=== PATIENT | male | born 1990 | race American Indian/Alaskan Native ===

== ENCOUNTER 2016-07-16 09:45 | Inpatient (IN) | payer OTHER ==
[2016-07-16 10:21] VITALS: BMI 15.7
--- NOTE | 2016-07-16 11:54 | HP ---
CIWA Score - CIWA Score Nausea/Vomitin-No Nausea/No Vomiting Muscle Tremors: 4-Moderate,w/Arms Extend Anxiety: 4-Mod. Anxious/Guarded Agitation: 4-Moderately Restless Paroxysmal Sweats: 2 Orientation: 0-Oriented Tacttile Disturbances: 3-Moderate Itch/Numb/Burn Auditory Disturbances: 0-None Visual Disturbances: 0-None Headache: 2-Mild CIWA-Ar Total Score: 19 Admission ROS BHS - HPI Chief Complaint: DETOX TX FOR ALCOHOL DEPENDENCE Allergies/Adverse Reactions: Allergies Allergy/AdvReac Type Severity Reaction Status Date / Time lactose AdvReac diarrhea Verified 07/16/16 10:15 NKDA Allergy Uncoded 07/16/16 10:15 History of Present Illness: 26 Y/O MALE WITH A HX OF ALCOHOL, CRACK, MARIJUANA AND PCP DEPENDENCE SEEKING DETOX TX. Exam Limitations: No Limitations - Ebola screening Have you traveled outside of the country in the last 21 days: No Have you had contact with anyone from an Ebola affected area: No Have you been sick,other than usual withdrawal symptoms: No - Review of Systems Constitutional: Chills, Loss of Appetite, Night Sweats, Changes in sleep EENT: reports: Blurred Vision (WHEN SMOKING DRUGS), Dental Problems (CHIPPED TOOTH) Respiratory: reports: No Symptoms reported Cardiac: reports: Chest Pain (WHEN SMOKING DRUGS), Lightheadedness GI: reports: Constipated, Poor Appetite, Poor Fluid Intake, Indigestion (HX GASTRITIS), Abdominal cramping : reports: No Symptoms Reported Musculoskeletal: reports: Back Pain (RIGHT SIDE OF FLANK.) Integumentary: reports: Rash (ITCHY FEET) Neuro: reports: Headache, Tremors, Unsteady Gait, Dizziness Endocrine: reports: No Symptoms Reported Hematology: reports: No Symptoms Reported Psychiatric: reports: Orientated x3, Agitated, Anxious Other Systems: Reviewed and Negative Patient History - Patient Medical History Hx Anemia: No Hx Asthma: No Hx Chronic Obstructive Pulmonary Disease (COPD): No Hx Cancer: No Hx Cardiac Disorders: No Hx Congestive Heart Failure: No Hx Hypertension: No Hx Hypercholesterolemia: No Hx Pacemaker: No HX Cerebrovascular Accident: No Hx Seizures: No Hx Dementia: No Hx Diabetes: No Hx Gastrointestinal Disorders: Yes (gastritis) Hx Liver Disease: No Hx Genitourinary Disorders: No Hx Sexually Transmitted Disorders: No Hx Renal Disease (ESRD): No Hx Thyroid Disease: No Hx Human Immunodeficiency Virus (HIV): No (NEGATIVE HX) Hx Hepatitis C: No (NEGATIVE HX) Hx Depression: No Hx Suicide Attempt: No (DENIES) Hx Bipolar Disorder: No Hx Schizophrenia: No Other Medical History: HX INSOMNIA - Patient Surgical History Past Surgical History: No Hx Neurologic Surgery: No Hx Cataract Extraction: No Hx Cardiac Surgery: No Hx Lung Surgery: No Hx Breast Surgery: No Hx Breast Biopsy: No Hx Abdominal Surgery: No Hx Appendectomy: No Hx Cholecystectomy: No Hx Genitourinary Surgery: No Hx Orthopedic Surgery: No Anesthesia Reaction: No - PPD History Previous Implant?: Yes Documented Results: Negative w/o proof Implanted On Prior R Admission?: Yes Date: 05/16/16 PPD to be Administered?: No - Reproductive History Patient is a Female of Child Bearing Age (11 -55 yrs old): No (MALE) - Smoking Cessation Smoking history: Current every day smoker Have you smoked in the past 12 months: Yes Aproximately how many cigarettes per day: 10 Hx Chewing Tobacco Use: No Initiated information on smoking cessation: Yes 'Breaking Loose' booklet given: 07/16/16 - Substance & Tx. History Hx Alcohol Use: Yes Hx Substance Use: Yes Substance Use Type: Alcohol, Cocaine, Marijuana (AND PCP) Hx Substance Use Treatment: Yes ([facility]-DETOX) - Substances Abused Crack Route: Oral Frequency: Daily Amount used: $50 Age of first use: 23 Date of Last Use: 07/16/16 PCP Route: Smoking Frequency: 1-2 times per week Amount used: $10 Age of first use: 20 Date of Last Use: 07/14/16 Alcohol-morgan/four dayana Route: Oral Frequency: Daily Amount used: 1 pt./2 (24 oz.) Age of first use: 12 Date of Last Use: 07/16/16 Marijuana Route: Smoking Frequency: Daily Amount used: $20 Age of first use: 13 Date of Last Use: 07/16/16 Family Disease History - Family Disease History Family Disease History: Diabetes: Mother Admission Physical Exam BHS - Vital Signs Vital Signs: Vital Signs - 24 hr 07/16/16 10:18 Temperature 97.6 F Pulse Rate 83 Respiratory 16 Rate Blood Pressure 115/66 - Physical General Appearance: Yes: Moderate Distress, Irritable, Anxious HEENTM: Yes: EOMI, Normocephalic, RONN, Pharynx Normal Respiratory: Yes: Chest Non-Tender, Lungs Clear, Normal Breath Sounds, No Respiratory Distress Neck: Yes: Supple, Trachea in good position Breast: Yes: Breast Exam Deferred Cardiology: Yes: Regular Rhythm, Regular Rate, S1, S2 Abdominal: Yes: Normal Bowel Sounds, Non Tender, Flat, Soft Genitourinary: Yes: Other (N/C) Back: Yes: Within Normal Limits Musculoskeletal: Yes: full range of Motion, Gait Steady Extremities: Yes: Normal Range of Motion, Non-Tender 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 intact, Fully Oriented, Alert, Motor Strength 5/5 Integumentary: Yes: Dry, Warm Lymphatic: Yes: Within Normal Limits - Diagnostic (1) Alcohol dependence with uncomplicated withdrawal Status: Acute (2) Cocaine dependence Status: Chronic Qualifiers: Substance use status: uncomplicated Qualified Code(s): F14.20 - Cocaine dependence, uncomplicated (3) Nicotine dependence Status: Chronic Qualifiers: Nicotine product type: cigarettes Substance use status: uncomplicated Qualified Code(s): F17.210 - Nicotine dependence, cigarettes, uncomplicated (4) Cannabis dependence Status: Acute (5) PCP (phencyclidine) abuse Status: Acute Cleared for Admission [facility] - Detox or Rehab [facility] Level of Care: Medically Managed Detox Regimen/Protocol: Librium [facility] Breath Alcohol Content Breath Alcohol Content: 0.023 Urine Drug Screen - Results Drug Screen Negative: No Urine Drug Screen Results: THC-Marijuana, RANDY-Cocaine, PCP-Phencyclidine
[2016-07-16] MEDS ORDERED: MENTHOL/PHENOL 1 EACH UD MM PRN (12:15)
[2016-07-16] MEDS ORDERED: guaiFENesin/D-METHORPHAN HB 10 ML UNIT-DOSE CUPS PO PRN (12:15)
[2016-07-16] MEDS ORDERED: diphenhydrAMINE HCL 50 MG CAPSULE PO PRN (12:15)
[2016-07-16] MEDS ORDERED: ACETAMINOPHEN 325 MG TABLET (FP) PO PRN (12:15)
[2016-07-16] MEDS ORDERED: MAGNESIUM CITRATE 300 ML BOTTLE PO PRN (12:15)
[2016-07-16] MEDS ORDERED: hydrOXYzine PAMOATE 25 MG CAPSULE (FP) PO PRN (12:15)
[2016-07-16] MEDS ORDERED: chlordiazePOXIDE HCL 25 MG CAPSULE PO PRN (12:15)
[2016-07-16] MEDS ORDERED: NICOTINE POLACRILEX 2 MG GUM BUC PRN (12:15)
[2016-07-16] MEDS ORDERED: IBUPROFEN 400 MG TABLET (FP) PO PRN (12:15)
[2016-07-16] MEDS ORDERED: P-EPHED 60MG/TRIPROLIDI 2.5MG TABLET PO PRN (12:15)
[2016-07-16] MEDS ORDERED: MAG HYDROX/AL HYDROX/SIMETH 30 ML UNIT-DOSE CUP PO PRN (12:15)
[2016-07-16] MEDS ORDERED: LOPERAMIDE HCL 2 MG CAPSULE PO PRN (12:15)
[2016-07-16] MEDS ORDERED: MAGNESIUM HYDROX 2400MG/30ML ORAL SUSPENSION 30 ML CUP PO PRN (12:15)
[2016-07-16] MEDS ORDERED: chlordiazePOXIDE HCL 25 MG CAPSULE PO ONE (12:20)
[2016-07-16] MEDS: NICOTINE 14 MG/24 HOURS TOPICAL PATCH TD SCH (13:33)
[2016-07-16 19:19] LABS: URINE APPEARANCE CLEAR; URINE BILIRUBIN NEGATIVE (NEGATIVE); URINE BLOOD NEGATIVE (NEGATIVE); URINE COLOR DKYELLOW; URINE GLUCOSE (UA) NEGATIVE (NEGATIVE); URINE KETONE NEGATIVE (NEGATIVE); URINE NITRITE NEGATIVE (NEGATIVE); URINE PROTEIN NEGATIVE (NEGATIVE); URINE UROBILINOGEN 4.0 E.U/dl E.U./dl (0.2-1.0)
[2016-07-16 19:29] LABS: URINE LEUK ESTERASE 1+ (NEGATIVE)
[2016-07-16 19:38] LABS: URINE BACTERIA RARE /hpf (NONE SEEN); URINE MUCUS RARE; URINE RBC 1 /hpf (0-3); URINE WBC 5 /hpf (3-5)
[2016-07-16] MEDS: chlordiazePOXIDE HCL 25 MG CAPSULE PO SCH ×2 (21:44→22:39)
[2016-07-16] MEDS: THIAMINE HCL 100 MG TABLET (FP) PO SCH (22:39)
--- NOTE | 2016-07-16 23:06 | EKG ---
Test Reason : Blood Pressure : / mmHG Vent. Rate : 084 BPM Atrial Rate : 084 BPM P-R Int : 134 ms QRS Dur : 098 ms QT Int : 368 ms P-R-T Axes : 000 140 144 degrees QTc Int : 434 ms SUSPECT ARM LEAD REVERSAL, INTERPRETATION ASSUMES NO REVERSAL NORMAL SINUS RHYTHM RIGHT AXIS DEVIATION NONSPECIFIC ST AND T WAVE ABNORMALITY ABNORMAL ECG NO PREVIOUS ECGS AVAILABLE Confirmed by SONALI PARKER, NICHOLE ([id number]) on 07/16/2016 11:05:47 PM Referred By: Vj Shoemaker Confirmed By:NICHOLE LYON MD
[2016-07-17] MEDS: chlordiazePOXIDE HCL 25 MG CAPSULE PO SCH ×4 (06:00→22:23)
--- NOTE | 2016-07-17 08:26 | CONSULT ---
[facility] Psychiatric Consult - Data Date of interview: 07/17/16 Admission source: [facility] Identifying data: This is 26 years old male with no psychiatric hospitalization history intoxicated with: Cannabis, Alcohol, PCP, , Crack and Nicotine Substance Abuse History: - Smoking Cessation. Smoking history: Current every day smoker. Have you smoked in the past 12 months: Yes. Aproximately how many cigarettes per day: 10. Hx Chewing Tobacco Use: No. Initiated information on smoking cessation: Yes. 'Breaking Loose' booklet given: 07/16/16. - Substance & Tx. History. Hx Alcohol Use: Yes. Hx Substance Use: Yes. Substance Use Type : Alcohol, Cocaine, Marijuana (AND PCP). Hx Substance Use Treatment: Yes ([facility] -DETOX). - Substances Abused. Crack. Route: Oral. Frequency: Daily. Amount used: $50. Age of first use: 23. Date of Last Use: 07/16/16. PCP. Route: Smoking. Frequency: 1-2 times per week. Amount used: $10. Age of first use: 20. Date of Last Use: 07/14/16. Alcohol-morgan/four dayana. Route : Oral. Frequency: Daily. Amount used: 1 pt./2 (24 oz.). Age of first use: 12. Date of Last Use: 07/16/16. Marijuana. Route: Smoking. Frequency: Daily. Amount used: $20. Age of first use: 13. Date of Last Use: 07/16/16 Medical History: Right foot injury history Psychiatric History: Patient reports history of anxiety, presoccupied with intomnia, reports taking prior to admission: Ambien 10mg po qhs Physical/Sexual Abuse/Trauma History: Denies Additional Comment: Ambien 10mg po qhs Mental Status Exam - Mental Status Exam Alert and Oriented to: Person Cognitive Function: Fair Patient Appearance: Unkempt Mood: Sad Affect: Mood Congruent Patient Behavior: Cooperative Speech Pattern: Appropriate Voice Loudness: Mildly Soft/Quiet Thought Process: Goal Oriented Thought Disorder: Being Controlled Hallucinations: Denies Suicidal Ideation: Denies Homicidal Ideation: Denies Insight/Judgement: Fair Sleep: Difficulty falling asleep Appetite: Weight loss Muscle strength/Tone: Normal Gait/Station: Normal Additional Comments: Ambien 10mg po qhs Psychiatric Findings - Problem List ([place] 1, 2,3) (1) Alcohol dependence with uncomplicated withdrawal Current Visit: Yes Status: Acute (2) Cocaine dependence Current Visit: Yes Status: Chronic Qualifiers: Substance use status: uncomplicated Qualified Code(s): F14.20 - Cocaine dependence, uncomplicated (3) Nicotine dependence Current Visit: Yes Status: Chronic Qualifiers: Nicotine product type: cigarettes Substance use status: uncomplicated Qualified Code(s): F17.210 - Nicotine dependence, cigarettes, uncomplicated (4) Alcohol-induced sleep disorder Current Visit: No Status: Acute (5) PCP (phencyclidine) abuse Current Visit: Yes Status: Acute (6) Cannabis dependence Current Visit: Yes Status: Acute (7) Drug-induced mood disorder Current Visit: Yes Status: Acute - Initial Treatment Plan Initial Treatment Plan: Ambien 10mg po qhs
[2016-07-17 09:32] LABS: MCH 31.6 pg (25.7-33.7); MCHC 33.1 g/dl (32.0-35.9); MEAN CELL VOLUME 95.3 fl (80-96); MEAN PLT VOLUME 9.6 fl (7.5-11.1); PLATELET COUNT 233 K/MM3 (134-434); WHITE BLOOD COUNT 8.9 K/mm3 (4.0-10.0)
[2016-07-17 09:35] LABS: HIV 1 & 2 AB NEGATIVE; HIV 1 AGp24 NEGATIVE
[2016-07-17 09:48] LABS: ALBUMIN 4.1 g/dl (3.4-5.0); ANION GAP 7 (8-16); CALCIUM 9.2 mg/dL (8.5-10.1); CO2 31 mmol/L (21-32); GLUCOSE,RANDOM 113 mg/dL (74-106); SGOT/AST 11 U/L (15-37); SGPT/ALT 17 U/L (12-78)
[2016-07-17 09:50] LABS: ALK PHOS 82 U/L (45-117); BILIRUBIN,TOTAL 0.2 mg/dL (0.2-1.0); CREATININE 0.9 mg/dL (0.7-1.3); TOT PROT 7.1 g/dl (6.4-8.2)
[2016-07-17] MEDS: PRENATAL VITAMINS W/ FOLIC ACID TABLET (FP) PO SCH (11:04)
[2016-07-17] MEDS: NICOTINE 14 MG/24 HOURS TOPICAL PATCH TD SCH (11:04)
[2016-07-17] MEDS ORDERED: INFLUENZA VACCINE 45 MCG/0.5 ML (MDV 16-17) IM ONE (12:00)
--- NOTE | 2016-07-17 13:27 | PN ---
[facility] CIWA - CIWA Score Nausea/Vomitin-No Nausea/No Vomiting Muscle Tremors: 4-Moderate,w/Arms Extend Anxiety: 3 Agitation: 4-Moderately Restless Paroxysmal Sweats: 3 Orientation: 0-Oriented Tacttile Disturbances: 0-None Auditory Disturbances: 0-None Visual Disturbances: 0-None Headache: 0-None Present CIWA-Ar Total Score: 14 BHS Progress Note (SOAP) Subjective: irritable agitation anxiety sweats Objective: 07/17/16 13:26 Vital Signs Temperature 96.8 F L 07/17/16 10:13 Pulse Rate 60 07/17/16 10:13 Respiratory Rate 16 07/17/16 10:13 Blood Pressure 112/56 07/17/16 10:13 O2 Sat by Pulse Oximetry (%) Laboratory Tests 07/16/16 07/16/16 07/17/16 11:40 13:00 05:30 WBC 8.9 RBC 4.31 Hgb 13.6 Hct 41.0 MCV 95.3 MCHC 33.1 RDW 14.0 Plt Count 233 MPV 9.6 Sodium Potassium Chloride Carbon Dioxide Anion Gap BUN Creatinine Creat Clearance w eGFR Random Glucose Calcium Total Bilirubin AST ALT Alkaline Phosphatase Total Protein Albumin Urine Color Dkyellow Urine Appearance Clear Urine pH 5.0 Ur Specific [place] 1.026 Urine Protein Negative Urine Glucose (UA) Negative Urine Ketones Negative Urine Blood Negative Urine Nitrite Negative Urine Bilirubin Negative Urine Urobilinogen 4.0 e.u/dl Ur Leukocyte Esterase 1+ H Urine RBC 1 Urine WBC 5 Ur Epithelial Cells Rare Urine Bacteria Rare Urine Mucus Rare HIV 1&2 Antibody Screen Negative HIV P24 Antigen Negative 07/17/16 05:30 WBC RBC Hgb Hct MCV MCHC RDW Plt Count MPV Sodium 142 Potassium 4.1 Chloride 104 Carbon Dioxide 31 Anion Gap 7 L BUN 13 D Creatinine 0.9 Creat Clearance w eGFR > 60 Random Glucose 113 H D Calcium 9.2 Total Bilirubin 0.2 D AST 11 L D ALT 17 Alkaline Phosphatase 82 Total Protein 7.1 Albumin 4.1 Urine Color Urine Appearance Urine pH Ur Specific [place] Urine Protein Urine Glucose (UA) Urine Ketones Urine Blood Urine Nitrite Urine Bilirubin Urine Urobilinogen Ur Leukocyte Esterase Urine RBC Urine WBC Ur Epithelial Cells Urine Bacteria Urine Mucus HIV 1&2 Antibody Screen HIV P24 Antigen awake/alert ambulating no acute distress Assessment: 02/09/17 13:27 withdrawal sx Plan: continue detox increase fluids
[2016-07-17 15:33] LABS: URINE APPEARANCE CLEAR; URINE BILIRUBIN NEGATIVE (NEGATIVE); URINE BLOOD NEGATIVE (NEGATIVE); URINE COLOR LTYELLOW; URINE GLUCOSE (UA) NEGATIVE (NEGATIVE); URINE KETONE NEGATIVE (NEGATIVE); URINE NITRITE NEGATIVE (NEGATIVE); URINE PROTEIN NEGATIVE (NEGATIVE); URINE UROBILINOGEN NEGATIVE E.U./dl (0.2-1.0)
[2016-07-17 15:35] LABS: URINE LEUK ESTERASE TRACE (NEGATIVE)
[2016-07-17 15:38] LABS: URINE MUCUS RARE; URINE RBC 1 /hpf (0-3); URINE WBC 20 /hpf (3-5)
--- NOTE | 2016-07-17 18:01 | PN ---
S Progress Note Note: received nurse call patient has itchy feet fungal toes clotrimazole cream continue detox
--- NOTE | 2016-07-17 19:33 | PN ---
[facility] Progress Note Note: received nurse call patient has heart burn zantac 150 mg bid continue detox
[2016-07-17] MEDS: CLOTRIMAZOLE 1% CREAM 15 GM TUBE TP SCH (22:23)
[2016-07-17] MEDS: THIAMINE HCL 100 MG TABLET (FP) PO SCH (22:23)
[2016-07-17] MEDS: RANITIDINE HCL 150 MG TABLET (FP) PO SCH (22:23)
[2016-07-17] MEDS: ZOLPIDEM TARTRATE 10 MG TABLET (PARK CARE ONLY) PO PRN (22:23)
[2016-07-18] MEDS: chlordiazePOXIDE HCL 25 MG CAPSULE PO SCH ×2 (05:41→10:47)
[2016-07-18] MEDS ORDERED: COLLOIDAL OATMEAL 1 BAR EACH TP PRN (10:43)
--- NOTE | 2016-07-18 10:45 | PN ---
[facility] CIWA - CIWA Score Nausea/Vomitin-No Nausea/No Vomiting Muscle Tremors: 3 Anxiety: 3 Agitation: 3 Paroxysmal Sweats: 3 Orientation: 0-Oriented Tacttile Disturbances: 0-None Auditory Disturbances: 0-None Visual Disturbances: 0-None Headache: 0-None Present CIWA-Ar Total Score: 12 S Progress Note (SOAP) Subjective: chills sweats interrupted sleep itchy scalp Objective: 07/18/16 10:45 Vital Signs Temperature 97.9 F 07/18/16 10:33 Pulse Rate 70 07/18/16 10:33 Respiratory Rate 18 07/18/16 10:33 Blood Pressure 117/75 07/18/16 10:33 O2 Sat by Pulse Oximetry (%) Laboratory Tests 07/16/16 07/16/16 07/17/16 11:40 13:00 05:30 WBC 8.9 RBC 4.31 Hgb 13.6 Hct 41.0 MCV 95.3 MCHC 33.1 RDW 14.0 Plt Count 233 MPV 9.6 Sodium Potassium Chloride Carbon Dioxide Anion Gap BUN Creatinine Creat Clearance w eGFR Random Glucose Calcium Total Bilirubin AST ALT Alkaline Phosphatase Total Protein Albumin Urine Color Dkyellow Urine Appearance Clear Urine pH 5.0 Ur Specific [place] 1.026 Urine Protein Negative Urine Glucose (UA) Negative Urine Ketones Negative Urine Blood Negative Urine Nitrite Negative Urine Bilirubin Negative Urine Urobilinogen 4.0 e.u/dl Ur Leukocyte Esterase 1+ H Urine RBC 1 Urine WBC 5 Ur Epithelial Cells Rare Urine Bacteria Rare Urine Mucus Rare RPR Titer HIV 1&2 Antibody Screen Negative HIV P24 Antigen Negative 07/17/16 07/17/16 07/17/16 05:30 05:30 10:05 WBC RBC Hgb Hct MCV MCHC RDW Plt Count MPV Sodium 142 Potassium 4.1 Chloride 104 Carbon Dioxide 31 Anion Gap 7 L BUN 13 D Creatinine 0.9 Creat Clearance w eGFR > 60 Random Glucose 113 H D Calcium 9.2 Total Bilirubin 0.2 D AST 11 L D ALT 17 Alkaline Phosphatase 82 Total Protein 7.1 Albumin 4.1 Urine Color Ltyellow Urine Appearance Clear Urine pH 5.0 Ur Specific [place] 1.020 Urine Protein Negative Urine Glucose (UA) Negative Urine Ketones Negative Urine Blood Negative Urine Nitrite Negative Urine Bilirubin Negative Urine Urobilinogen Negative Ur Leukocyte Esterase Trace H Urine RBC 1 Urine WBC 20 Ur Epithelial Cells Rare Urine Bacteria Urine Mucus Rare RPR Titer Nonreactive HIV 1&2 Antibody Screen HIV P24 Antigen awake/alert ambulating no acute distress Assessment: 07/18/16 10:46 withdrawal sx Plan: continue detox increase fluids selenum shampoo aveeno soap
[2016-07-18] MEDS: CLOTRIMAZOLE 1% CREAM 15 GM TUBE TP SCH ×2 (10:47→22:36)
[2016-07-18] MEDS: PRENATAL VITAMINS W/ FOLIC ACID TABLET (FP) PO SCH (10:47)
[2016-07-18] MEDS: RANITIDINE HCL 150 MG TABLET (FP) PO SCH ×2 (10:47→22:34)
[2016-07-18] MEDS: SELENIUM SULFIDE 2.5% LOTION 4 OZ. TP SCH (11:57)
[2016-07-18] MEDS: NICOTINE 14 MG/24 HOURS TOPICAL PATCH TD SCH (14:55)
[2016-07-18] MEDS: CLINDAMYCIN PHOSPHATE 1% TOPICAL GEL 30 GM TUBE TP SCH ×2 (14:56→22:34)
[2016-07-18] MEDS: chlordiazePOXIDE 5 MG CAPSULE PO SCH ×2 (17:17→22:34)
[2016-07-18] MEDS: THIAMINE HCL 100 MG TABLET (FP) PO SCH (22:34)
[2016-07-18] MEDS: ZOLPIDEM TARTRATE 10 MG TABLET (PARK CARE ONLY) PO PRN (22:34)
[2016-07-19] MEDS: chlordiazePOXIDE 5 MG CAPSULE PO SCH ×2 (05:58→10:58)
[2016-07-19] MEDS: CLINDAMYCIN PHOSPHATE 1% TOPICAL GEL 30 GM TUBE TP SCH ×2 (10:58→22:23)
[2016-07-19] MEDS: RANITIDINE HCL 150 MG TABLET (FP) PO SCH ×2 (10:58→22:26)
[2016-07-19] MEDS: PRENATAL VITAMINS W/ FOLIC ACID TABLET (FP) PO SCH (10:58)
[2016-07-19] MEDS: CLOTRIMAZOLE 1% CREAM 15 GM TUBE TP SCH ×2 (10:59→22:24)
[2016-07-19] MEDS: SELENIUM SULFIDE 2.5% LOTION 4 OZ. TP SCH (10:59)
[2016-07-19] MEDS: NICOTINE 14 MG/24 HOURS TOPICAL PATCH TD SCH (11:01)
--- NOTE | 2016-07-19 11:45 | PN ---
S Progress Note (SOAP) Subjective: ALERT,IRRITABLE,ANXIOUS,INTERRUPTED SLEEP Objective: 07/19/16 11:44 Vital Signs Temperature 97.4 F L 07/19/16 09:42 Pulse Rate 59 L 07/19/16 09:42 Respiratory Rate 18 07/19/16 09:42 Blood Pressure 119/69 07/19/16 09:42 O2 Sat by Pulse Oximetry (%) Assessment: 07/19/16 11:44 WITHDRAWAL SYMPTOM Plan: CONTINUE DETOX,DISCHARGE IN AM
[2016-07-19] MEDS ORDERED: NICOTINE 21 MG/24 HOURS TOPICAL PATCH TD SCH (13:15)
[2016-07-19] MEDS: chlordiazePOXIDE HCL 10 MG CAPSULE PO SCH ×2 (17:48→22:26)
[2016-07-19] MEDS: THIAMINE HCL 100 MG TABLET (FP) PO SCH (22:26)
[2016-07-19] MEDS: ZOLPIDEM TARTRATE 10 MG TABLET (PARK CARE ONLY) PO PRN (22:27)
[2016-07-20] MEDS: chlordiazePOXIDE HCL 10 MG CAPSULE PO SCH (05:25)
[2016-07-20 07:03] VITALS: BP 110/60; PULSE 71; TEMP 97.3
--- NOTE | 2016-07-20 09:48 | DS ---
[facility] Detox Discharge Summary Admission Date: 07/16/16 Discharge Date: 07/20/16 - History Present History: Alcohol Dependence, Cannabis Dependence, Pcp Dependence Pertinent Past History: right foot injury - Physical Exam Results Vital Signs: Vital Signs Temperature 97.3 F L 07/20/16 06:00 Pulse Rate 71 07/20/16 06:00 Respiratory Rate 16 07/20/16 06:00 Blood Pressure 110/60 07/20/16 06:00 O2 Sat by Pulse Oximetry (%) Pertinent Admission Physical Exam Findings: Withdrawal sx. Laboratory Last Values WBC 8.9 K/mm3 (4.0-10.0) 07/17/16 05:30 RBC 4.31 M/mm3 (4.00-5.60) 07/17/16 05:30 Hgb 13.6 GM/dL (11.7-16.9) 07/17/16 05:30 Hct 41.0 % (35.4-49) 07/17/16 05:30 MCV 95.3 fl (80-96) 07/17/16 05:30 MCHC 33.1 g/dl (32.0-35.9) 07/17/16 05:30 RDW 14.0 % (11.9-15.9) 07/17/16 05:30 Plt Count 233 K/MM3 (134-434) 07/17/16 05:30 MPV 9.6 fl (7.5-11.1) 07/17/16 05:30 Sodium 142 mmol/L (136-145) 07/17/16 05:30 Potassium 4.1 mmol/L (3.5-5.1) 07/17/16 05:30 Chloride 104 mmol/L (98-107) 07/17/16 05:30 Carbon Dioxide 31 mmol/L (21-32) 07/17/16 05:30 Anion Gap 7 (8-16) L 07/17/16 05:30 BUN 13 mg/dL (7-18) D 07/17/16 05:30 Creatinine 0.9 mg/dL (0.7-1.3) 07/17/16 05:30 Creat Clearance w eGFR > 60 (>60) 07/17/16 05:30 Random Glucose 113 mg/dL (74-106) H D 07/17/16 05:30 Calcium 9.2 mg/dL (8.5-10.1) 07/17/16 05:30 Total Bilirubin 0.2 mg/dL (0.2-1.0) D 07/17/16 05:30 AST 11 U/L (15-37) L D 07/17/16 05:30 ALT 17 U/L (12-78) 07/17/16 05:30 Alkaline Phosphatase 82 U/L (45-117) 07/17/16 05:30 Total Protein 7.1 g/dl (6.4-8.2) 07/17/16 05:30 Albumin 4.1 g/dl (3.4-5.0) 07/17/16 05:30 Urine Color Ltyellow 07/17/16 10:05 Urine Appearance Clear 07/17/16 10:05 Urine pH 5.0 (5.0-8.0) 07/17/16 10:05 Ur Specific [place] 1.020 (1.001-1.035) 07/17/16 10:05 Urine Protein Negative (NEGATIVE) 07/17/16 10:05 Urine Glucose (UA) Negative (NEGATIVE) 07/17/16 10:05 Urine Ketones Negative (NEGATIVE) 07/17/16 10:05 Urine Blood Negative (NEGATIVE) 07/17/16 10:05 Urine Nitrite Negative (NEGATIVE) 07/17/16 10:05 Urine Bilirubin Negative (NEGATIVE) 07/17/16 10:05 Urine Urobilinogen Negative E.U./dl (0.2-1.0) 07/17/16 10:05 Ur Leukocyte Esterase Trace (NEGATIVE) H 07/17/16 10:05 Urine RBC 1 /hpf (0-3) 07/17/16 10:05 Urine WBC 20 /hpf (3-5) 07/17/16 10:05 Ur Epithelial Cells Rare /hpf (FEW) 07/17/16 10:05 Urine Bacteria Rare /hpf (NONE SEEN) 07/16/16 13:00 Urine Mucus Rare 07/17/16 10:05 RPR Titer Nonreactive (NONREACTIVE) 07/17/16 05:30 HIV 1&2 Antibody Screen Negative 07/16/16 11:40 HIV P24 Antigen Negative 07/16/16 11:40 labs noted - Treatment Hospital Course: Detox Protocol Followed, Detoxed Safely, Responded well, Discharged Condition Good, Rehab Referral Accepted - Medication Discharge Medications: Ambulatory Orders Ranitidine [Zantac -] 150 mg PO BID #60 tablet 05/17/16 Zolpidem Tartrate [Ambien] 10 mg PO HS #14 tablet MDD 10 07/17/16 - Diagnosis (1) Alcohol dependence with uncomplicated withdrawal Current Visit: Yes Status: Acute (2) Cannabis dependence Current Visit: Yes Status: Acute (3) Cocaine dependence Current Visit: Yes Status: Chronic Qualifiers: Substance use status: uncomplicated Qualified Code(s): F14.20 - Cocaine dependence, uncomplicated (4) Nicotine dependence Current Visit: Yes Status: Chronic Qualifiers: Nicotine product type: cigarettes Substance use status: uncomplicated Qualified Code(s): F17.210 - Nicotine dependence, cigarettes, uncomplicated (5) Drug-induced mood disorder Current Visit: Yes Status: Acute (6) Alcohol-induced sleep disorder Current Visit: No Status: Acute - AMA Did Patient Leave Against Medical Advice: No
== END 2016-07-20 09:45 | disposition home or self-care (01) | DRG 774 ==
LOC: YASAS 09:45 → Y6N 11:45
PROVIDERS: ADMIT Internal Medicine; ATTEND Internal Medicine
PROC: HZ2ZZZZ Detoxification Services for Substance Abuse Treatment (ICD-10-PCS; principal; 2016-07-20)
DX: F10.230 Alcohol dependence with withdrawal, uncomplicated (principal); F14.20 Cocaine dependence, uncomplicated; F12.20 Cannabis dependence, uncomplicated; F17.210 Nicotine dependence, cigarettes, uncomplicated; F16.10 Hallucinogen abuse, uncomplicated; F19.24 Other psychoactive substance dependence with psychoactive substance-induced mood disorder; F10.282 Alcohol dependence with alcohol-induced sleep disorder
CPT/HCPCS: 36415; 80053; 81003; 81015; 85027; 86593; 87389; 93005; 93010